=== PATIENT | female | born 1995 | race Caucasian/White ===

== ENCOUNTER 2016-12-09 02:51 | Emergency (ER) | payer MEDICAID ==
[2016-12-09 03:52] LABS: BASOPHIL % 0.4 % (0-2); PLATELET COUNT 345 x10^3mcL (130-400)
[2016-12-09 03:56] LABS: RED CELL DISTRIBUTION WIDTH 15.1 % (11.5-14.5)
[2016-12-09 05:18] LABS: UA SPECIFIC GRAVITY 1.025 (1.005-1.035); microscopic required? YES; urine erythrocyte NEGATIVE (NEGATIVE)
[2016-12-09 06:11] VITALS: BP 91/50
== END 2016-12-09 06:11 | disposition home or self-care (01) ==
LOC: ED 02:51
PROVIDERS: Emergency Medicine
DX: O23.43 Unspecified infection of urinary tract in pregnancy, third trimester (principal); Z3A.31 31 weeks gestation of pregnancy
CPT/HCPCS: 36415; Q0092